=== PATIENT | male | born 1955 | race Caucasian/White ===

== ENCOUNTER 2019-05-27 18:26 | Inpatient (IN) | payer OTHER ==
[~2019-05-27] VITALS: Ht 172.7 cm; Wt 104.8 kg
[2019-05-27 18:42] VITALS: Ht 172.7 cm; Wt 104.8 kg
[2019-05-28] MEDS ORDERED: METFORMIN HYDR500 M1 (00:41)
[2019-05-28] MEDS ORDERED: GABAPENTIN800 M1 (00:42)
[2019-05-28] MEDS ORDERED: LIPITOR10 MG (00:43)
[2019-05-28] MEDS ORDERED: MOT600 (00:44)
[2019-05-28] MEDS ORDERED: MOBIC15 MG (00:44)
[2019-05-28] MEDS ORDERED: ZOCOR40 MG (00:44)
[2019-05-28] MEDS ORDERED: ULTRAM50 MG (00:45)
[2019-05-28 02:27] VITALS: BP 142/74
[2019-05-28 07:17] LABS: PHOSPHOROUS 3.8 mg/dL (2.5-4.9)
[2019-05-28 09:14] LABS: microscopic required? NO
[2019-05-28 09:34] LABS: UA SPECIFIC GRAVITY >=1.030 (1.005-1.035); urine erythrocyte NEGATIVE (NEGATIVE)
[2019-05-28 09:41] VITALS: BP 125/68
[2019-05-28 10:01] LABS: AMPHETAMINE QUAL UR NONE DETECTED (See below)
[2019-05-28 16:47] VITALS: BP 137/74
[2019-05-28 20:40] VITALS: BP 127/68
[2019-05-29 06:04] VITALS: BP 130/74
[2019-05-29 06:16] LABS: BASOPHIL % 0.5 % (0-2); PLATELET COUNT 202 x10^3mcL (130-400); RED CELL DISTRIBUTION WIDTH 14.1 % (11.5-14.5)
[2019-05-29 06:31] LABS: CALCIUM 8.3 mg/dL (8.5-10.1); CARBON DIOXIDE 26.6 mmol/L (21-32); CHLORIDE SERUM 108 mmol/L (98-107); CREATININE SERUM 0.5 mg/dL (0.7-1.3); GFR1 > 60 mL/min; GLUCOSE SERUM 99 mg/dL (74-106); POTASSIUM SERUM 3.7 mmol/L (3.5-5.1); SODIUM SERUM 144 mmol/L (136-145)
[2019-05-29 09:39] VITALS: BP 122/68
[2019-05-29 11:56] VITALS: BP 122/68
== END 2019-05-29 15:50 | DRG 351 ==
LOC: ED 18:26 → MU 05-28 00:57
PROVIDERS: ADMIT General Practice
DX: M79.18 Myalgia, other site (principal); E11.40 Type 2 diabetes mellitus with diabetic neuropathy, unspecified; Z96.642 Presence of left artificial hip joint; I10 Essential (primary) hypertension; E11.65 Type 2 diabetes mellitus with hyperglycemia; Z79.84 Long term (current) use of oral hypoglycemic drugs; Z79.899 Other long term (current) drug therapy
CPT/HCPCS: 82962; 97116-GP; 97530-GP; G0378; J2270; J2405; J7030; Q0092